=== PATIENT | female | born 2000 | race Two or more races ===

== ENCOUNTER 2023-02-04 05:19 | Inpatient (IN) | payer MEDICAID ==
[~2023-02-04] VITALS: Ht 170.2 cm; Wt 71.4 kg
[2023-02-04] MEDS ORDERED: ACETAMINOPHEN 325 MG TAB PO ONE (05:45)
[2023-02-04 06:32] LABS: Urine Bacteria FEW /hpf (None Seen); Urine Blood 2+ /uL (Negative); Urine Clarity HAZY (Clear); Urine Color Yellow (Yellow); Urine Protein, UAD 2+ (Negative); Urine Specific Gravity 1.014 (1.001-1.035); Urine Urobilinogen Normal (Negative); Urine WBC 547 /hpf (0 - 5); Urine WBC Clumps PRESENT /hpf (None Seen)
[2023-02-04] MEDS ORDERED: cefTRIAXone SOD 1,000 MG VL ONE (06:34)
[2023-02-04 06:36] LABS: Albumin 5.1 g/dL (3.2-4.8); Alkaline Phosphatase 89 U/L (46-116); Anion Gap 7 (5-15); Aspartate Aminotransferase 14 U/L (13-40); Blood Urea Nitrogen 9 mg/dL (9-23); Calcium 9.7 mg/dL (8.7-10.4); Carbon Dioxide 28 mmol/L (20-30); Chloride 99 mmol/L (98-107); Glucose 122 mg/dL (74-106); Lipase 31 U/L (12-53); Sodium 134 mmol/L (136-145)
[2023-02-04 06:37] LABS: Bilirubin, Total 1.1 mg/dL (0.2-1.0); Total Protein 8.2 g/dL (5.7-8.2)
[2023-02-04 06:38] LABS: Basophils # (auto) 0 10 ^3/uL (0-0.2); Basophils % (auto) 0.4 % (0.0-2.0); Eosinophils # (auto) 0 10 ^3/uL (0-0.8); Eosinophils % (auto) 0.2 % (0.0-7.0); Hematocrit 41.8 % (36.0-46.0); Hemoglobin 14.4 g/dL (12.2-16.2); Lymphocytes # (auto) 0.7 10 ^3/uL (0.4-5.4); Lymphocytes % (auto) 5.1 % (10.0-50.0); Mean Corpuscular Hemoglobin 32.1 pg (28.0-32.0); Mean Corpuscular Hgb Conc. 34.4 g/dL (32.0-36.0); Mean Corpuscular Volume 93.4 fL (80.0-100.0); Monocytes # (auto) 1.1 10 ^3/uL (0-1.3); Monocytes % (auto) 8.3 % (0.0-12.0); Neutrophils # (auto) 11.3 10 ^3/uL (1.6-8.6); Nucleated Red Blood Cells % 0.1 %; Red Blood Cells 4.47 10^6/uL (4.0-5.20); Red Cell Distribution Width 12.6 % (11.8-14.3); White Blood Cell 13.2 10^3/uL (4.4-10.8)
[2023-02-04 06:44] LABS: Alanine Aminotransferase 9 U/L (7-40)
[2023-02-04] MEDS ORDERED: cefTRIAXone 1GM/50ML D5W 50 ML IV ONE (08:45)
[2023-02-04] MEDS ORDERED: SODIUM CHLORIDE 0.9% 1,900 ML IV ONE (08:45)
[2023-02-04] MEDS ORDERED: KETOROLAC TROMETH 30 MG/ML 1ML VIAL IV ONE (13:00)
[2023-02-04] MEDS ORDERED: ACETAMINOPHEN 325 MG TAB PO PRN (13:00)
[2023-02-04] MEDS: SODIUM CHLORIDE 0.9% 1,000 ML IV SCH ×2 (16:46→22:01)
[2023-02-04] MEDS: ONDANSETRON HCL 4 MG/2 ML VIAL IV PRN ×2 (16:58→22:17)
[2023-02-04] MEDS: HYDROcodone-ACET 5/325MG TAB PO PRN (22:29)
[2023-02-04] MEDS: KETOROLAC TROMETH 30 MG/ML 1ML VIAL IV PRN (23:13)
[2023-02-05] MEDS: SODIUM CHLORIDE 0.9% 1,000 ML IV SCH ×3 (05:40→22:34)
[2023-02-05 05:44] LABS: Basophils # (auto) 0 10 ^3/uL (0-0.2); Basophils % (auto) 0.3 % (0.0-2.0); Eosinophils # (auto) 0 10 ^3/uL (0-0.8); Eosinophils % (auto) 0.2 % (0.0-7.0); Hematocrit 32.7 % (36.0-46.0); Hemoglobin 11.1 g/dL (12.2-16.2); Lymphocytes # (auto) 1.3 10 ^3/uL (0.4-5.4); Lymphocytes % (auto) 10.8 % (10.0-50.0); Mean Corpuscular Hemoglobin 31.8 pg (28.0-32.0); Mean Corpuscular Hgb Conc. 33.8 g/dL (32.0-36.0); Mean Corpuscular Volume 93.9 fL (80.0-100.0); Monocytes # (auto) 1.2 10 ^3/uL (0-1.3); Monocytes % (auto) 10.5 % (0.0-12.0); Neutrophils # (auto) 9.1 10 ^3/uL (1.6-8.6); Neutrophils % (auto) 78.2 % (37.0-80.0); Nucleated Red Blood Cells % 0.1 %; Red Blood Cells 3.48 10^6/uL (4.0-5.20); Red Cell Distribution Width 12.9 % (11.8-14.3); White Blood Cell 11.7 10^3/uL (4.4-10.8)
[2023-02-05] MEDS: KETOROLAC TROMETH 30 MG/ML 1ML VIAL IV PRN ×2 (05:57→19:10)
[2023-02-05 06:20] LABS: Alkaline Phosphatase 59 U/L (46-116); Anion Gap 5 (5-15); Aspartate Aminotransferase 21 U/L (13-40); BUN/Creatinine Ratio 10.7 (10.0-20.0); Bilirubin, Total 0.9 mg/dL (0.2-1.0); Blood Urea Nitrogen 11 mg/dL (9-23); Calcium 8.3 mg/dL (8.7-10.4); Carbon Dioxide 27 mmol/L (20-30); Chloride 103 mmol/L (98-107); Glucose 111 mg/dL (74-106); Potassium 3.8 mmol/L (3.5-5.1); Sodium 135 mmol/L (136-145); Total Protein 6.4 g/dL (5.7-8.2)
[2023-02-05 06:25] LABS: Alanine Aminotransferase 9 U/L (7-40)
[2023-02-05] MEDS: ENOXAPARIN SOD 40 MG/0.4 ML SYRINGE SC SCH (10:45)
[2023-02-05] MEDS: cefTRIAXone 1GM/50ML D5W 50 ML IV SCH (10:45)
[2023-02-05] MEDS: HYDROcodone-ACET 5/325MG TAB PO PRN (10:46)
[2023-02-05 11:00] VITALS: PULSE 89; RESP 15; O2SAT 100
[2023-02-05] MEDS: ONDANSETRON HCL 4 MG/2 ML VIAL IV PRN ×2 (11:03→19:35)
[2023-02-05] MEDS ORDERED: KETOROLAC TROMETH 30 MG/ML 1ML VIAL IV ONE (14:15)
[2023-02-05 20:00] VITALS: PULSE 92; RESP 21; O2SAT 98
[2023-02-06] VITALS (10 sets, daily range): BP systolic 94–124; BP diastolic 35–77; PULSE 91–108; RESP 14–24; TEMP 98.4–101.6; O2SAT 92–98
[2023-02-06] MEDS: ONDANSETRON HCL 4 MG/2 ML VIAL IV PRN ×5 (01:50→23:34)
[2023-02-06] MEDS: KETOROLAC TROMETH 30 MG/ML 1ML VIAL IV PRN ×4 (01:51→20:33)
[2023-02-06] MEDS: cefTRIAXone 1GM/50ML D5W 50 ML IV SCH (09:01)
[2023-02-06] MEDS: ENOXAPARIN SOD 40 MG/0.4 ML SYRINGE SC SCH (09:02)
[2023-02-06] MEDS: SODIUM CHLORIDE 0.9% 1,000 ML IV SCH ×3 (11:11→23:20)
[2023-02-06] MEDS ORDERED: DOCUSATE SOD 100 MG CAP PO PRN (12:30)
[2023-02-07] MEDS: KETOROLAC TROMETH 30 MG/ML 1ML VIAL IV PRN ×2 (02:34→08:31)
[2023-02-07 05:00] VITALS: BP 94/40; PULSE 85; RESP 15; TEMP 98.6; O2SAT 96
[2023-02-07] MEDS: SODIUM CHLORIDE 0.9% 1,000 ML IV SCH (05:30)
[2023-02-07 08:16] VITALS: BP 93/57; PULSE 70; RESP 18; TEMP 98.6; O2SAT 99
[2023-02-07] MEDS: ONDANSETRON HCL 4 MG/2 ML VIAL IV PRN (08:28)
[2023-02-07 08:34] VITALS: BP 122/66; PULSE 94
[2023-02-07] MEDS: cefTRIAXone 1GM/50ML D5W 50 ML IV SCH (09:13)
[2023-02-07] MEDS: ENOXAPARIN SOD 40 MG/0.4 ML SYRINGE SC SCH (09:13)
[2023-02-07] MEDS ORDERED: CIPR-173 PO (11:35)
[2023-02-07] MEDS ORDERED: TRAM50TA2 PO (11:35)
[2023-02-07 12:16] VITALS: TEMP 37
== END 2023-02-07 13:18 | disposition home or self-care (01) | DRG 720 ==
LOC: ER 05:19 → OVERFLOW 12:54 → WEST WING 02-06 03:35
PROVIDERS: ADMIT Nurse Practitioner Family; ATTEND Family Medicine
DX: A41.9 Sepsis, unspecified organism (principal); R71.0 Precipitous drop in hematocrit; E86.0 Dehydration; N10 Acute pyelonephritis
CPT/HCPCS: 36415; 74176; 76830; 76856; 80053; 81001; 83605; 83690; 84702; 85025; 87040; 87086; 93005; 96365; 96375; 99291; G0378; J0696; J1885; J2405